=== PATIENT | female | born 1990 | race Caucasian/White ===

== ENCOUNTER 2025-05-10 10:41 | Outpatient (CLI) | payer BC, OTHER ==
[2025-05-10 10:51] LABS: #Basophils 0.05 10x3/uL (0.0-0.2); #Eosinophils 0.17 10x3/uL (0.0-0.7); #Monocytes 0.65 10x3/uL (0.11-0.59); #Neutrophils 5.16 10x3/uL (1.40-6.50); %Basophils 0.6 % (0.0-1.0); %Eosinophils 2.1 % (0.0-10.0); %Lymphocytes 25.0 % (21.0-51.0); %Monocytes 8.0 % (0.0-10.0); %Neutrophils 63.8 % (42.0-75.0); Hematocrit 44.4 % (36.0-47.0); Hemoglobin 14.2 g/dL (12.0-16.0); Mean Corpuscular Hemoglobin 30.0 pg (27.0-31.0); Mean Corpuscular Volume 93.9 fL (78.0-98.0); Platelet Count 218 10x3/uL (130-400); Red Blood Cell (RBC) Count 4.73 mill/uL (4.20-5.40); White Blood Cell (WBC) Count 8.09 10x3/uL (4.8-10.8)
[2025-05-10 11:06] LABS: Anion Gap 13 mmol/L (10-20); BUN (Urea Nitrogen) 14 mg/dL (7.0-18.7); Calc. Creatinine Clearance 0 mL/min (70-130); Calcium 9.4 mg/dL (7.8-10.44); Carbon Dioxide 24 mmol/L (22-29); Chloride 107 mmol/L (98-107); Glucose 106 mg/dL (70-105); Potassium 4.2 mmol/L (3.5-5.1); Sodium 140 mmol/L (136-145)
[2025-05-10 11:07] LABS: CRP, High Sensitivity at Bryan 0.07 mg/dL (< or = 0.5)
[2025-05-10 11:12] LABS: BHCG - Serum Negative (NEGATIVE); Pregs Control Background? CLEAR/WHITE (CLR/WHITE); Pregs Control Bar Appear? YES (CONTROL BAR)
== END 2025-05-10 10:42 | disposition home or self-care (01) ==
LOC: LABBT 10:41
PROVIDERS: ATTEND Orthopaedic Surgery Hand Surgery
DX: Z01.812 Encounter for preprocedural laboratory examination (principal); M86.9 Osteomyelitis, unspecified; D16.9 Benign neoplasm of bone and articular cartilage, unspecified
CPT/HCPCS: 80048; 84703; 85025; 86141

== ENCOUNTER 2025-05-14 06:51 | Day surgery (SDC) | payer BC, OTHER ==
[2025-05-10 10:23] VITALS: BMI 37.5
[2025-05-14] MEDS ORDERED: CEFAZOLIN 2 GM VIAL ONE (07:43)
[2025-05-14] MEDS ORDERED: PROPOFOL 20 ML ONE ×2 (08:18→09:16)
[2025-05-14] MEDS ORDERED: Lidocaine 1% PF 5 ML VIAL ONE (08:21)
[2025-05-14] MEDS ORDERED: Bacitracin Zinc Ointment 30 gm TUBE ONE (09:02)
[2025-05-14] MEDS ORDERED: Bupivacaine 0.25% HCL 30 ML VIAL ONE (09:02)
[2025-05-14] MEDS ORDERED: Glycopyrrolate 0.2 MG/ML 5 ML SYRINGE ONE (09:05)
[2025-05-14] MEDS ORDERED: Ondansetron PF 4 MG/2 ML Vial ONE ×2 (09:25→10:11)
[2025-05-14] MEDS ORDERED: Ketorolac Tromethamine 30 MG (1 mL) VIAL ONE ×2 (09:25→10:56)
[2025-05-14] MEDS ORDERED: fentaNYL PF 100 MCG/2 ML SYRINGE ONE ×2 (10:15→11:05)
[2025-05-14] MEDS ORDERED: HYDROcodone/Acetaminophen 5/325 mg Tablet ONE (12:50)
== END 2025-05-14 13:24 | disposition home or self-care (01) ==
LOC: SDC 06:51
PROVIDERS: ATTEND Orthopaedic Surgery Hand Surgery
DX: L72.0 Epidermal cyst (principal); M86.9 Osteomyelitis, unspecified; D16.9 Benign neoplasm of bone and articular cartilage, unspecified; Z87.59 Personal history of other complications of pregnancy, childbirth and the puerperium; Z87.891 Personal history of nicotine dependence
CPT/HCPCS: 88304; A6223; C1889; J0665; J1100; J1885; J2704; J3010